=== PATIENT | male | born 1995 | race Caucasian/White ===

== ENCOUNTER 2020-11-09 17:28 | Observation (INO) | payer OTHER ==
[2020-11-09] MEDS ORDERED: ONDANSETRON 4 MG/2 ML VIAL IVP STA (18:03)
[2020-11-09] MEDS ORDERED: SODIUM CHLORIDE 0.9% 1,000 ML IV STA (18:03)
[2020-11-09 18:05] LABS: Basophils % (A) 1 %; Eosinophils # (A) 0.1 k/uL (0-0.7); Eosinophils % (A) 1 %; HCT 44.5 % (39.0-53.0); HGB 15.9 gm/dL (13.0-17.5); Lymphocytes # (A) 1.6 k/uL (1.0-4.8); Lymphocytes % (A) 26 %; MCH 30.3 pg (25.0-35.0); MCHC 35.7 g/dL (31.0-37.0); MCV 84.8 fL (80.0-100.0); Mean Platelet Volume 7.7; Monocytes # (A) 0.5 k/uL (0-1.0); Monocytes % (A) 8 %; Neutrophils # (A) 3.9 k/uL (1.3-7.7); Neutrophils % (A) 62 %; Platelet Count 190 k/uL (150-450); RBC 5.25 m/uL (4.30-5.90); RDW 12.1 % (11.5-15.5); WBC 6.2 k/uL (3.8-10.6)
[2020-11-09 18:08] LABS: Glucose,Whole Blood 99 mg/dL (75-99)
[2020-11-09 18:20] LABS: ALT 14 U/L (4-49); AST 25 U/L (17-59); African American GFR (CKD) >90 (>60 ml/min/1.73 sqM); Alkaline Phosphatase 72 U/L (38-126); Anion Gap 16 mmol/L; Blood Urea Nitrogen 5 mg/dL (9-20); Calcium 9.5 mg/dL (8.4-10.2); Carbon Dioxide 22 mmol/L (22-30); Chloride 106 mmol/L (98-107); Glucose 116 mg/dL (74-99); Magnesium 2.5 mg/dL (1.6-2.3); Non-African American GFR(CKD) >90 (>60 ml/min/1.73 sqM); Potassium 3.5 mmol/L (3.5-5.1); Sodium 144 mmol/L (137-145); Total Bilirubin 1.5 mg/dL (0.2-1.3); Total Protein 7.6 g/dL (6.3-8.2)
[2020-11-09 18:25] LABS: Alcohol 272 mg/dL
--- NOTE | 2020-11-09 18:45 | ED ---
Alcohol HPI - General Chief Complaint: Alcohol Stated Complaint: ETOH Time Seen by Provider: 11/09/20 17:46 Source: EMS Mode of arrival: EMS Limitations: altered mental status - History of Present Illness Initial Comments: 24-year-old male presents to the emergency department for alcohol intoxication. Patient was brought via EMS after he was found to be heavily intoxicated and department and and cooperative. He was also uncooperative to the paramedics and aggressive with them as well. Patient is not alert and oriented but is seen to have multiple abrasions on his arms and legs. He was vomiting on arrival. - Related Data Home Medications Medication Instructions Recorded Confirmed No Known Home Medications 11/09/20 11/09/20 Allergies Allergy/AdvReac Type Severity Reaction Status Date / Time Unable to Assess Allergy Verified 11/09/20 18:07 Review of Systems ROS Statement: Those systems with pertinent positive or pertinent negative responses have been documented in the HPI. ROS Other: All systems not noted in ROS Statement are negative. Past Medical History Past Medical History: Unable to Obtain History of Any Multi-Drug Resistant Organisms: Unobtainable Past Surgical History: Unable to Obtain Past Psychological History: Unable to Obtain Smoking Status: Unknown if ever smoked Past Alcohol Use History: Unable to Obtain Past Drug Use History: Unable to Obtain General Exam Limitations: altered mental status General appearance: alert, in no apparent distress Head exam: Present: atraumatic, normocephalic, normal inspection Eye exam: Present: normal appearance Pupils: Present: normal accommodation ENT exam: Present: normal exam, normal oropharynx, mucous membranes moist Neck exam: Present: normal inspection, full ROM. Absent: tenderness Respiratory exam: Present: normal lung sounds bilaterally. Absent: respiratory distress, wheezes, rales, rhonchi, stridor Cardiovascular Exam: Present: regular rate, normal rhythm, normal heart sounds Extremities exam: Present: normal inspection (Multiple abrasions on the forearms and legs) Back exam: Present: normal inspection Neurological exam: Present: altered Skin exam: Present: warm, dry, intact, normal color Course Vital Signs 11/09/20 17:44 Temperature 99.0 F Pulse Rate 61 Respiratory 16 Rate Blood Pressure 122/66 O2 Sat by Pulse 99 Oximetry Medical Decision Making - Medical Decision Making 24-year-old male presents to the emergency department for alcohol intoxication. Patient was vomiting on arrival. Patient was altered due to elevated alcohol level of 273. Magnesium 2.5. CMP reveals decreasing BUN of 5. Patient had multiple abrasions on his arms and legs. No obvious signs of trauma to the head. Dr. Patricia also examined the patient and was able to awake him. Patient immediately became agitated. He was started IV fluids. CIWA assessed. Ativan protocol. CT of the brain his C-spine is unremarkable. Chest x-ray is also negative for any acute findings. Patient will be admitted for further medical management. Case discussed with Dr. Patricia Admitting physician is Psych on consult - Lab Data Result diagrams: 11/09/20 17:53 11/09/20 17:53 Lab Results 11/09/20 11/09/20 11/09/20 Range/Units 17:53 17:53 18:07 WBC 6.2 (3.8-10.6) k/uL RBC 5.25 (4.30-5.90) m/uL Hgb 15.9 (13.0-17.5) gm/dL Hct 44.5 (39.0-53.0) % MCV 84.8 (80.0-100.0) fL MCH 30.3 (25.0-35.0) pg MCHC 35.7 (31.0-37.0) g/dL RDW 12.1 (11.5-15.5) % Plt Count 190 (150-450) k/uL MPV 7.7 Neutrophils % 62 % Lymphocytes % 26 % Monocytes % 8 % Eosinophils % 1 % Basophils % 1 % Neutrophils # 3.9 (1.3-7.7) k/uL Lymphocytes # 1.6 (1.0-4.8) k/uL Monocytes # 0.5 (0-1.0) k/uL Eosinophils # 0.1 (0-0.7) k/uL Basophils # 0.0 (0-0.2) k/uL Sodium 144 (137-145) mmol/L Potassium 3.5 (3.5-5.1) mmol/L Chloride 106 (98-107) mmol/L Carbon Dioxide 22 (22-30) mmol/L Anion Gap 16 mmol/L BUN 5 L (9-20) mg/dL Creatinine 1.09 (0.66-1.25) mg/dL Est GFR (CKD-EPI)AfAm >90 (>60 ml/min/1.73 sqM) Est GFR (CKD-EPI)NonAf >90 (>60 ml/min/1.73 sqM) Glucose 116 H (74-99) mg/dL POC Glucose (mg/dL) 99 (75-99) mg/dL POC Glu [employer] Lucila Grajeda Calcium 9.5 (8.4-10.2) mg/dL Magnesium 2.5 H (1.6-2.3) mg/dL Total Bilirubin 1.5 H (0.2-1.3) mg/dL AST 25 (17-59) U/L ALT 14 (4-49) U/L Alkaline Phosphatase 72 (38-126) U/L Total Protein 7.6 (6.3-8.2) g/dL Albumin 5.0 (3.5-5.0) g/dL Serum Alcohol 272 H* mg/dL Coronavirus (PCR) (Not Detectd) 11/09/20 Range/Units 19:36 WBC (3.8-10.6) k/uL RBC (4.30-5.90) m/uL Hgb (13.0-17.5) gm/dL Hct (39.0-53.0) % MCV (80.0-100.0) fL MCH (25.0-35.0) pg MCHC (31.0-37.0) g/dL RDW (11.5-15.5) % Plt Count (150-450) k/uL MPV Neutrophils % % Lymphocytes % % Monocytes % % Eosinophils % % Basophils % % Neutrophils # (1.3-7.7) k/uL Lymphocytes # (1.0-4.8) k/uL Monocytes # (0-1.0) k/uL Eosinophils # (0-0.7) k/uL Basophils # (0-0.2) k/uL Sodium (137-145) mmol/L Potassium (3.5-5.1) mmol/L Chloride (98-107) mmol/L Carbon Dioxide (22-30) mmol/L Anion Gap mmol/L BUN (9-20) mg/dL Creatinine (0.66-1.25) mg/dL Est GFR (CKD-EPI)AfAm (>60 ml/min/1.73 sqM) Est GFR (CKD-EPI)NonAf (>60 ml/min/1.73 sqM) Glucose (74-99) mg/dL POC Glucose (mg/dL) (75-99) mg/dL POC Glu [employer] ID Calcium (8.4-10.2) mg/dL Magnesium (1.6-2.3) mg/dL Total Bilirubin (0.2-1.3) mg/dL AST (17-59) U/L ALT (4-49) U/L Alkaline Phosphatase (38-126) U/L Total Protein (6.3-8.2) g/dL Albumin (3.5-5.0) g/dL Serum Alcohol mg/dL Coronavirus (PCR) Not Detected (Not Detectd) Disposition Clinical Impression: Alcoholic intoxication Disposition: ADMITTED IP TO THIS HOSP Condition: Fair Instructions (If sedation given, give patient instructions): Alcohol Intoxication (ED) Is patient prescribed a controlled substance at d/c from ED?: No Referrals: None,Stated [Primary Care Provider] - 1-2 days Time of Disposition: 21:47
[2020-11-09] MEDS ORDERED: LORazepam 2 MG/ML INJ IV PRN ×3 (18:55)
[2020-11-09] MEDS ORDERED: THIAMINE 100 MG/ML 2 ML VIAL IM STA (18:55)
[2020-11-09] MEDS ORDERED: ONDANSETRON 4 MG/2 ML VIAL IVP PRN (19:12)
[2020-11-09] MEDS ORDERED: NALOXONE 0.4 MG/ML 1 ML VIAL IV PRN (19:12)
[2020-11-09] MEDS ORDERED: SODIUM CHLORIDE 0.9% 1,000 ML IV SCH (19:15)
[2020-11-09] MEDS ORDERED: Magnesium Replacement Protocol 1 EACH MISC MISCELLANE PRN (21:12)
[2020-11-09] MEDS ORDERED: Potassium Replacement Protocol 1 EACH MISC MISCELLANE PRN (21:12)
--- NOTE | 2020-11-09 22:01 | CT ---
EXAMINATION TYPE: CT brain annika negrete con DATE OF EXAM: 11/09/2020 COMPARISON: Altered mental status HISTORY: Altered mental status. ETOH. Possible head injury. CT DLP: 1342.8 mGycm Automated exposure control for dose reduction was used. Ventricles and sulci appear normal. There is no mass effect nor midline shift. There is no sign of in tracranial hemorrhage. Calvarium is intact. Skull base is intact. There is normal aeration of the mas toid sinuses. Cervical vertebra have fairly normal spacing and alignment. Posterior elements are intact. Facet join ts are intact. There is no evidence of a fracture. IMPRESSION: Negative CT scan of the cervical spine. No fracture. Negative CT scan of the brain.
--- NOTE | 2020-11-09 22:02 | XR ---
EXAMINATION TYPE: XR chest 1V portable DATE OF EXAM: 11/09/2020 COMPARISON: NONE HISTORY: Chest pain TECHNIQUE: Single view FINDINGS: Heart and mediastinum are normal. Lungs are clear. Diaphragm is normal. Bony thorax is inta ct. IMPRESSION: Normal chest.
[2020-11-09] MEDS: FAMOTIDINE 20 MG/2 ML VIAL IV SCH (23:08)
[2020-11-10 02:18] VITALS: RESP 18
[2020-11-10] MEDS ORDERED: THIAMINE 100 MG TAB PO SCH (07:30)
[2020-11-10] MEDS: FAMOTIDINE 20 MG/2 ML VIAL IV SCH (07:55)
[2020-11-10] MEDS ORDERED: HEPARIN SODIUM,PORCINE/PF 5,000 UNIT/0.5 ML SYRINGE SQ SCH (09:00)
[2020-11-10 09:41] LABS: ALT 389 U/L (4-49); African American GFR (CKD) >90 (>60 ml/min/1.73 sqM); Albumin 4.4 g/dL (3.5-5.0); Alkaline Phosphatase 141 U/L (38-126); Anion Gap 16 mmol/L; Blood Urea Nitrogen 15 mg/dL (9-20); Calcium 9.2 mg/dL (8.4-10.2); Carbon Dioxide 20 mmol/L (22-30); Chloride 105 mmol/L (98-107); Glucose 67 mg/dL (74-99); Magnesium 1.9 mg/dL (1.6-2.3); Non-African American GFR(CKD) >90 (>60 ml/min/1.73 sqM); Sodium 141 mmol/L (137-145); Total Bilirubin 2.1 mg/dL (0.2-1.3); Total Protein 6.7 g/dL (6.3-8.2)
[2020-11-10 09:46] LABS: Basophils % (A) 0 %; Eosinophils % (A) 0 %; HCT 40.4 % (39.0-53.0); HGB 14.5 gm/dL (13.0-17.5); Lymphocytes # (A) 0.6 k/uL (1.0-4.8); Lymphocytes % (A) 5 %; MCH 31.1 pg (25.0-35.0); MCHC 35.8 g/dL (31.0-37.0); Monocytes # (A) 0.8 k/uL (0-1.0); Monocytes % (A) 7 %; Neutrophils # (A) 10.2 k/uL (1.3-7.7); Neutrophils % (A) 88 %; Platelet Count 161 k/uL (150-450); RBC 4.65 m/uL (4.30-5.90); RDW 12.4 % (11.5-15.5); WBC 11.7 k/uL (3.8-10.6)
[2020-11-10 10:18] LABS: AST 976 U/L (17-59)
[2020-11-10 14:28] VITALS: BP 146/82; PULSE 88; TEMP 98
--- NOTE | 2020-11-10 15:41 | P.CN ---
Psychiatric Consult - . Consult date: 11/10/20 Consult:: 11/10/20 15:40 Music Journalist attempted to see patient today for psychiatric consultation. EMR was reviewed, patient was admitted for alcohol intoxication brought in by EMS and had a blood alcohol level of 273. Patient had elevated LFTs. Patient had signed AMA by the time bond writer went to see patient for evaluation
--- NOTE | 2020-11-17 23:16 | P.HPIM ---
History of Present Illness H&P Date: 11/10/20 Chief Complaint: Acute alcohol intoxication Patient is a 24-year-old male with no significant past medical history was brought to the hospital by EMS after he was found heavily intoxicated and was uncooperative. Patient was seen by police and also uncooperative to the [facility] edics and was very aggressive with them. Patient will intoxicated on admission and was having multiple abrasions on his arms and legs. He was vomiting on arrival. Denied any complaints of chest pain. Today patient is more awake and oriented. No complaints of headache or dizziness or lightheadedness. Denies any recent illnesses. Psychiatry was also consulted due to aggressive behavior and alcohol abuse. Laboratory pressure WBC 11.7 hemoglobin 14.5 and platelets 161 Sodium 141 potassium 4.0 bicarb is 20 anion gap 16 BUN 59 creatinine 0.91 Total bilirubin was 2.9 AST 6976, ALT 389 and alk phos 141 and serum alcohol level was 272 on admission Coronavirus PCR not detected. CT head and cervical spine no fracture or no acute intracranial process noted. Chest x-ray showed normal chest. Review of Systems Constitutional: Patient denies any fever or chills . No generalized weakness or weight loss. Abdomen: Patient denied nausea vomiting and diarrhea and abdominal pain. Cardiovascular: Patient denies any chest pain or short of breath no palpitations. Respiratory: patient denied any cough or sputum production. No shortness of breath Neurologic: Patient denied any numbness or tingling headache. Musculoskeletal: Patient denies any complaints of joint swelling or deformity. Skin: Negative Psychiatric: Negative Endocrine: No heat or cold intolerance. No recent weight gain. Genitourinary: No dysuria or hematuria. All other 14 point ROS negative except the above Past Medical History Past Medical History: Unable to Obtain History of Any Multi-Drug Resistant Organisms: Unobtainable Past Surgical History: Unable to Obtain Past Psychological History: Unable to Obtain Smoking Status: Unknown if ever smoked Past Alcohol Use History: Unable to Obtain Past Drug Use History: Unable to Obtain Medications and Allergies Home Medications Medication Instructions Recorded Confirmed Type No Known Home Medications 11/09/20 11/09/20 History Allergies Allergy/AdvReac Type Severity Reaction Status Date / Time Unable to Assess Allergy Verified 11/09/20 18:07 Physical Exam Vitals: Vital Signs Temp Pulse Resp BP Pulse Ox 11/10/20 07:30 91 18 121/69 97 11/10/20 06:00 71 18 91/60 99 11/10/20 00:00 85 18 105/57 96 11/09/20 21:00 99 20 100/58 96 11/09/20 17:44 99.0 F 61 16 122/66 99 Intake and Output 11/09/20 11/10/20 11/10/20 22:59 06:59 14:59 Other: Weight 74.843 kg PHYSICAL EXAMINATION: Patient is lying in the bed comfortably, no acute distress, awake alert and oriented.. HEENT: Normocephalic. Neck is supple. Pupils reactive. Nostrils clear. Oral cavity is moist. Ears reveal no drainage. Neck reveals no JVD, carotid bruits, or thyromegaly. CHEST EXAMINATION: Trachea is central. Symmetrical expansion. Lung [place] clear to auscultation and percussion. CARDIAC: Normal S1, S2 with no gallops. No murmurs ABDOMEN: Soft. Bowel sounds normal. No organomegaly. No abdominal bruits. Extremities: reveal no edema. No clubbing or cyanosis Neurologically awake, alert, oriented x3 with well-coordinated movements. No focal deficits noted Skin: No rash or skin lesions. Psychiatric: Coperative. anxious, Nonsuicidal Musculoskeletal: No joint swelling or deformity. Normal range of motion. Results CBC & Chem 7: 11/10/20 08:29 11/10/20 08:29 Labs: Abnormal Lab Results - Last 24 Hours (Table) 11/09/20 11/10/20 Range/Units 17:53 08:29 WBC 11.7 H (3.8-10.6) k/uL Neutrophils # 10.2 H (1.3-7.7) k/uL Lymphocytes # 0.6 L (1.0-4.8) k/uL BUN 5 L (9-20) mg/dL Glucose 116 H (74-99) mg/dL Magnesium 2.5 H (1.6-2.3) mg/dL Total Bilirubin 1.5 H (0.2-1.3) mg/dL Serum Alcohol 272 H* mg/dL Thrombosis Risk Factor Assmnt - DVT/VTE Prophylaxis DVT/VTE Prophylaxis: Mechanical Prophylaxis ordered Assessment and Plan Assessment: Acute alcohol intoxication Aggressive behavior and uncooperative on admission Elevated liver enzymes/alcoholic hepatitis Mild hyperbilirubinemia DVT prophylaxis early ambulation. GI prophylaxis. Plan: Patient will be continued on IV hydration and multivitamins and thiamine. Continue to monitor for withdrawal symptoms. Psychiatry was consulted due to aggressive behavior on admission and also alcohol abuse. Monitor liver enzymes and further recommendations based on clinical course.
--- NOTE | 2020-12-03 09:40 | P.DS ---
Providers Date of admission: 11/09/20 22:07 Expected date of discharge: 11/10/20 Attending physician: Joaquín Hanson MD Consults: 11/09/20 21:14 Consult Physician Urgent Consulting Provider: Abel Cuellar Consult Reason/Comments: alcohol abuse Do you want consulting provider notified?: Yes Primary care physician: Stated None Hospital Course: Discharge diagnosis Acute alcohol intoxication Aggressive behavior and uncooperative on admission Elevated liver enzymes/alcoholic hepatitis Mild hyperbilirubinemia DVT prophylaxis early ambulation. GI prophylaxis. Hospital course Patient is a 24-year-old male with no significant past medical history was brought to the hospital by EMS after he was found heavily intoxicated and was uncooperative. Patient was seen by police and also uncooperative to the paramedics and was very aggressive with them. Patient will intoxicated on admission and was having multiple abrasions on his arms and legs. He was vomiting on arrival. Denied any complaints of chest pain. Today patient is more awake and oriented. No complaints of headache or dizziness or lightheadedness. Denies any recent illnesses. Psychiatry was also consulted due to aggressive behavior and alcohol abuse. Laboratory pressure WBC 11.7 hemoglobin 14.5 and platelets 161 Sodium 141 potassium 4.0 bicarb is 20 anion gap 16 BUN 59 creatinine 0.91 Total bilirubin was 2.9 AST 6976, ALT 389 and alk phos 141 and serum alcohol level was 272 on admission Coronavirus PCR not detected. CT head and cervical spine no fracture or no acute intracranial process noted. Chest x-ray showed normal chest. Patient was continued on IV hydration and multivitamins and thiamine. Continue to monitor for withdrawal symptoms. Psychiatry was consulted due to aggressive behavior on admission and also alcohol abuse. Monitor liver enzymes. Patient left AMA Patient Condition at Discharge: Fair Plan - Discharge Summary New Discharge Prescriptions: No Action No Known Home Medications Discharge Medication List No Known Home Medications 11/09/20 [History] Follow up Appointment(s)/Referral(s): None,Stated [Primary Care Provider] - 1-2 days Patient Instructions/Handouts: Alcohol Intoxication (ED) Discharge Disposition: Left Against Medical Advice
== END 2020-11-10 15:00 | disposition left against medical advice (07) ==
LOC: EC 17:28 → 1SOBS 22:07 → 6NMEDSUR 11-10 13:25
PROVIDERS: ADMIT Internal Medicine; ATTEND Internal Medicine
DX: F10.129 Alcohol abuse with intoxication, unspecified (principal); Y90.8 Blood alcohol level of 240 mg/100 ml or more; S50.812A Abrasion of left forearm, initial encounter; S50.811A Abrasion of right forearm, initial encounter; S80.812A Abrasion, left lower leg, initial encounter; S80.811A Abrasion, right lower leg, initial encounter; X58.XXXA Exposure to other specified factors, initial encounter; Z20.822 Contact with and (suspected) exposure to COVID-19; Z53.29 Procedure and treatment not carried out because of patient's decision for other reasons
CPT/HCPCS: 96376; 96361; 96372; 96374; 96375; 99285; 36415; 80053 ×2; 83735 ×2; 85025 ×2; 87635; 71045; 72125; 70450; G0378 ×3; G0480; J2405 ×2; J1644; 80320